=== PATIENT | male | born 1980 | race Caucasian/White ===

== ENCOUNTER 2017-05-14 16:34 | Emergency (ER) | payer BC ==
[2017-05-14] MEDS ORDERED: OXYCODONE-ACETAMINOPHEN 5-325 MG TABLET PO ONE (16:44)
[2017-05-14] MEDS ORDERED: OXYCODONE-ACETAMINOPHEN 5-325 MG TABLET ONE (16:48)
[2017-05-14] MEDS ORDERED: HYDROMORPHONE HCL INJ/PF 2 MG/ML AMPULE IV ONE (17:10)
[2017-05-14] MEDS ORDERED: ONDANSETRON HCL INJ/PF 4 MG/2 ML SDV IV ONE (17:10)
--- NOTE | 2017-05-14 17:24 | RADIOLOGY REPORT (SQ) ---
EXAM DESCRIPTION: ELBOW LEFT OVER 2 VIEWS COMPLETED DATE/TIME: 05/14/2017 5:10 pm REASON FOR STUDY: fall COMPARISON: None. NUMBER OF VIEWS: Four views. TECHNIQUE: AP, lateral, and both oblique radiographic images acquired of the left elbow. LIMITATIONS: None. FINDINGS: MINERALIZATION: Normal. BONES: There is anterior and distal dislocation of the distal humerus in relation to the olecranon. Multiple bony fragments are seen anterior likely representing fractures of the olecranon. No other f ractures are identified. JOINT: Moderate elbow joint effusion SOFT TISSUES: There is significant soft tissue swelling about the arm. No radiopaque foreign body. OTHER: No other significant finding. IMPRESSION: Anterior and distal dislocation of the distal humerus in relation to the olecranon not. There is a fracture of the anterior portion of the olecranon. No other fractures are identified. S ignificant soft tissue swelling about the left elbow. Effusion. TECHNICAL DOCUMENTATION: JOB ID: [id number] [employer]- All Rights Reserved
--- NOTE | 2017-05-14 17:25 | ER Document Report ---
ED Extremity Problem, Upper - General Mode of Arrival: Ambulatory Information source: Patient TRAVEL OUTSIDE OF THE [place] IN LAST 30 DAYS: No - HPI Patient complains to provider of: Injury, Pain, Left, Elbow, Shoulder Onset: Just prior to arrival - Refer to HPI note Similar symptoms previously: No Recently seen / treated by doctor: No <KARTHIK RAGLAND - Last Filed: 05/14/17 19:21> <IRVING MARTÍNEZ - Last Filed: 05/14/17 23:45> - General Chief Complaint: Elbow Injury Stated Complaint: ELBOW INJURY Time Seen by Provider: 05/14/17 16:49 Notes: Patient is a 36 year old male presenting to the emergency department for an injury to his left elbow. Patient state he was trying to get out of a pool that he was working on when he fell and injured his arm. Patient has a noticeable deformity. Patient also complains of some mild pain to his left shoulder. Patient last ate at 14:00. Patient denies any history of PTSD, anxiety, depression, or bipolar disorder. Patient has a history of a deviated septum in his right nare. Patient also currently has some sinus congestion. Patient has no known drug allergies. (KARTHIK RAGLAND) - Related Data Allergies/Adverse Reactions: No Known Allergies Allergy (Unverified 07/24/12 14:21) Past Medical History - General Information source: Patient - Social History Smoking Status: Current Every Day Smoker Chew tobacco use (# tins/day): No Frequency of alcohol use: Rare Drug Abuse: None Family History: None Patient has suicidal ideation: No Patient has homicidal ideation: No Renal/ Medical History: Denies: Hx Peritoneal Dialysis Surgical Hx: Negative - Immunizations Hx Diphtheria, Pertussis, Tetanus Vaccination: Yes <KARTHIK RAGLAND - Last Filed: 05/14/17 19:21> Review of Systems - Review of Systems Constitutional: No symptoms reported EENT: No symptoms reported Cardiovascular: No symptoms reported Respiratory: No symptoms reported Gastrointestinal: No symptoms reported Genitourinary: No symptoms reported Male Genitourinary: No symptoms reported Musculoskeletal: See HPI Skin: No symptoms reported Hematologic/Lymphatic: No symptoms reported Neurological/Psychological: No symptoms reported -: Yes All other systems reviewed and negative <KARTHIK RAGLAND - Last Filed: 05/14/17 19:21> Physical Exam <KARTHIK RAGLAND - Last Filed: 05/14/17 19:21> <IRVING MARTÍNEZ - Last Filed: 05/14/17 23:45> - Vital signs Vitals: Temp Pulse Resp BP Pulse Ox 98.3 F 70 20 144/84 H 100 05/14/17 16:37 05/14/17 16:37 05/14/17 16:37 05/14/17 16:37 05/14/17 16:37 - Notes Notes: GENERAL: Alert, interacts well. No acute distress. HEAD: Normocephalic, atraumatic. EYES: Pupils equal, round, and reactive to light. Extraocular movements intact. ENT: Oral mucosa moist, tongue midline. Slightly deviated septum to the left nare. Postnasal drip NECK: Full range of motion. Supple. Trachea midline. LUNGS: Clear to auscultation bilaterally, no wheezes, rales, or rhonchi. No respiratory distress. HEART: Regular rate and rhythm. No murmurs, gallops, or rubs. ABDOMEN: Soft, non-tender. Non-distended. Bowel sounds present in all 4 quadrants. EXTREMITIES: Posterior deformity to the left elbow consistent with posterior dislocation from x-ray reading. Tenderness to palpation at the proximal ulna, nontender at the proximal radius. Tender to palpation over the anterior glenohumeral joint. 5/5 muscular strength to the right hand. Patient cannot pronate or supinate with the left arm. No edema, radial and dorsalis pedis pulses 2/4 bilaterally. No cyanosis. NEUROLOGICAL: Alert and oriented x3. Normal speech. PSYCH: Normal affect, normal mood. SKIN: Warm, dry, normal turgor. No rashes or lesions noted. (KARTHIK RAGLAND) Course <KARTHIK RAGLAND - Last Filed: 05/14/17 19:21> <IRVING MARTÍNEZ - Last Filed: 05/14/17 23:45> - Re-evaluation Re-evalutation: 05/14/17 19:53 Initial x-ray shows a posterior elbow dislocation with fracture of the ulnar coronoid. After reduction with ketamine repeat x-ray shows good reduction with good alignment of the ulnar coronoid. Patient is placed in long-arm posterior splint and sling, discharged home asked to follow-up as an outpatient with Dr. Sainz. (IRVING MARTÍNEZ) - Vital Signs Vital signs: Temp Pulse Resp BP Pulse Ox 97.9 F 78 17 137/90 H 100 05/14/17 20:00 05/14/17 20:00 05/14/17 20:00 05/14/17 20:00 05/14/17 20:00 Procedures - Conscious Sedation Conscious sedation Time started: 18:21 Time completed: 19:00 Consent obtained: Yes Last meal: 14:00 Prior complications: Procedural sedation Normal healthy pt.: P1. - ASA Classification Airway Evaluation: Other - slight deviated septum on the left Mallampati Classification: Class 1 Used during procedure: Suction available, IV access obtained, Pulse ox on pt., block cableman on pt. Medications administered: Ketamine - 100mg Reversal agents: None I personally performed/intraservice time: Procedure, 31-45 min Complications: No - Immobilization Left Elbow Time completed: 18:29 Pre-Proc Neuro Vasc Exam: Normal Immobilizer type: Long arm posterior Performed by: Provider assisted, PCT Post-Proc Neuro Vasc Exam: Normal Alignment checked and good: Yes Left Arm Time completed: 18:33 Pre-Proc Neuro Vasc Exam: Normal Immobilizer type: Sling Performed by: PCT Post-Proc Neuro Vasc Exam: Normal Alignment checked and good: Yes - Joint Reduction/Fracture Care Left Elbow Time completed: 18:26 Consent obtained: Yes Conscious sedation: Yes Pre-procedure NV exam: Yes Post-procedure NV exam: Yes Post-reduction x-ray: Joint reduced Reduction attempts: 1 Complications: No <KARTHIK RAGLAND - Last Filed: 05/14/17 19:21> - Conscious Sedation Conscious sedation Indication: Fracture and posterior dislocation of the left elbow. Airway Evaluation: Other. No: Abnormal 3-3-2 rule, Copious secretions, Large tongue, Loose teeth I personally performed/intraservice time: Sedation - Immobilization Left Elbow Performed by: Provider Left Arm Performed by: Provider assisted - Joint Reduction/Fracture Care Left Elbow Fracture: Closed <IRVING MARTÍNEZ - Last Filed: 05/14/17 23:45> Discharge <KARTHIK RAGLAND - Last Filed: 05/14/17 19:21> <IRVING MARTÍNEZ - Last Filed: 05/14/17 23:45> - Discharge Clinical Impression: Dislocation of elbow, left, closed Qualifiers: Encounter type: initial encounter Qualified Code(s): S53.105A - Unspecified dislocation of left ulnohumeral joint, initial encounter Fracture of coronoid process of left ulna Qualifiers: Encounter type: initial encounter Fracture type: closed Fracture alignment: nondisplaced Qualified Code(s): S52.045A - Nondisplaced fracture of coronoid process of left ulna, initial encounter for closed fracture Condition: Stable Disposition: HOME, SELF-CARE Additional Instructions: You dislocated your left elbow and have a left ulnar coronoid fracture. We were able to reduce the elbow in the emergency department and the left ulna coronoid is well aligned. We have placed you in a long-arm posterior splint and a sling. It is important to call Dr. Sainz's office and follow-up with him. He is an orthopedic surgeon. Prescriptions: Hydrocodone/Acetaminophen [Racine 5-325 mg Tablet] 1 tab PO Q4HP PRN #10 tablet PRN Reason: Forms: Return to Work Referrals: JEANETH SAINZ MD [ACTIVE STAFF] - Follow up in 3-5 days (Call tomorrow to arrange a follow-up appointment.) Scribe Attestation: 05/14/17 23:45 I personally performed the services described in the documentation, reviewed and edited the documentation which was dictated to the scribe in my presence, and it accurately records my words and actions. (IRVING MARTÍNEZ) Scribe Documentation - Scribe Written by Darci:: Darci Montemayor, 05/14/17 18:40 acting as scribe for :: Marco A <KARTHIK RAGLAND - Last Filed: 05/14/17 19:21>
--- NOTE | 2017-05-14 17:26 | RADIOLOGY REPORT (SQ) ---
EXAM DESCRIPTION: SHOULDER LEFT 2 OR MORE VIEWS COMPLETED DATE/TIME: 05/14/2017 5:10 pm REASON FOR STUDY: INJURY; FALL COMPARISON: None. NUMBER OF VIEWS: Two views. TECHNIQUE: Frontal and Y-view images acquired of the left shoulder. LIMITATIONS: None. FINDINGS: MINERALIZATION: Normal. BONES: No acute fracture or dislocation. No worrisome bone lesions. JOINTS: No dislocation. VISUALIZED LUNGS AND RIBS: No pneumothorax. No rib fracture. SOFT TISSUES: No radiopaque foreign body. OTHER: No other significant finding. IMPRESSION: NEGATIVE STUDY OF THE LEFT SHOULDER. NO RADIOGRAPHIC EVIDENCE OF ACUTE INJURY. TECHNICAL DOCUMENTATION: JOB ID: [id number] [employer]- All Rights Reserved
[2017-05-14] MEDS ORDERED: KETAMINE HCL INJ 500 MG/10 ML VIAL IV ONE (17:39)
--- NOTE | 2017-05-14 19:41 | RADIOLOGY REPORT (SQ) ---
EXAM DESCRIPTION: ELBOW LEFT AP/LATERAL COMPLETED DATE/TIME: 05/14/2017 7:10 pm REASON FOR STUDY: L elbow post reduction COMPARISON: Left elbow two views 05/14/2017, 1702 hours NUMBER OF VIEWS: Two views. TECHNIQUE: AP and lateral radiographic images acquired of the left elbow. LIMITATIONS: Dorsal fiberglass splint FINDINGS: MINERALIZATION: Normal. BONES: There is a fracture along the coronoid process of ulna seen on lateral view. Proximal radius, distal humerus intact JOINT: Elbow joint effusion SOFT TISSUES: Soft tissue swelling. No radiopaque foreign body OTHER: No other significant finding. IMPRESSION: Normal alignment at the left elbow joint On the lateral view, a nondisplaced fracture of the coronoid process of the ulna is present. TECHNICAL DOCUMENTATION: JOB ID: [id number] [employer]- All Rights Reserved
[2017-05-14] MEDS ORDERED: HYDROCODONE/ACETAMINOPHEN 5-325 MG 6 TAB/DSPK PO PRN (19:57)
[2017-05-14 20:57] VITALS: BP 137/90
== END 2017-05-14 20:05 | disposition home or self-care (01) ==
LOC: ER 16:34
PROC: 0PSLXZZ Reposition Left Ulna, External Approach (ICD-10-PCS; principal; 2017-05-14)
DX: S52.045A Nondisplaced fracture of coronoid process of left ulna, initial encounter for closed fracture (principal); W19.XXXA Unspecified fall, initial encounter; Y93.89 Activity, other specified; M25.512 Pain in left shoulder; R09.81 Nasal congestion; F17.200 Nicotine dependence, unspecified, uncomplicated
CPT/HCPCS: 99283; 99152; 96374; 96375; 73070; 73080; 73030; 24675; J3490; J1170; J2405

== ENCOUNTER 2020-09-01 09:39 | Day surgery (SDC) | payer BC, OTHER ==
[~2020-09-01 09:39] MED LIST: DEXAMETHASONE SOD PHOS INJ 10 MG/1 ML VIAL ONE; FENTANYL CITRATE INJ/PF 100 MCG/2 ML AMPUL ONE; MIDAZOLAM 2 MG/2 ML INJ ONE; MORPHINE SULFATE 10 MG/ML INJ ONE; ONDANSETRON HCL INJ/PF 4 MG/2 ML SDV ONE; PROPOFOL INJ 200 MG/20 ML VIAL IV ONE
[2020-09-01] MEDS ORDERED: OXYMETAZOLINE HCL 0.05% NASAL SPRAY 15 ML BOTTLE ONE (09:53)
[2020-09-01] MEDS ORDERED: AMPICILLIN SODIUM 2 GM in NORMAL SALINE 100 ML IV PRN (10:05)
--- NOTE | 2020-09-01 11:08 | Operative Report ---
Operative Report-[facility] Operative Report: Date: 01 September 2020 History: 39-year-old male with a history of chronic tonsillitis and recurrent tonsillitis. Presents today for a tonsillectomy. Informed sent was obtained from the patient. Pre-operative diagnosis: 1. Chronic Tonsillitis Post operative diagnosis: Same as above Procedure: Tonsillectomy Surgeon: Ricky Smith MD, FACS, [facility] Anesthesia: General via Endotrachreal intubation Procedure: After receiving informed consent, the patient was brought to the operating room and placed supine on the operating table. After successful induction and intubation by anesthesia the patient was turned 90 degrees and placed in Trendelenburg. A shoulder roll was placed along with a head drape. A McIvor mouth gag was inserted atraumatically into the oral cavity and opened up. The soft palate was palpated and found to be normal. Red rubber catheters were inserted down each nasal cavity and brought out to elevate the soft palate. Attention was then directed to the tonsils. The right tonsil was grasped with tenaculum and retracted medially. Using Bovie electrocautery the right tonsil was dissected free from its tonsillar fossa . Hemostasis was obtained using suction Bovie electrocautery. A similar procedure was performed on the left side. Both tonsils were removed. The tonsils were 3+. The oral pharynx and the oral cavity were irrigated with copious amounts of normal saline, without evidence of bleeding. An orogastric tube was inserted into the stomach to aspirate gastric contents. The McIvor mouthgag was then released and reopened, the surgical bed was dry without evidence of bleeding. The McIvor mouth gag along with the red catheters were removed from the patient. The patient was then returned back to anesthesia who successfully extubated the patient. Estimated blood loss: 5 mL Fluids: 500 mL The patient was then transported to the Post Anesthesia Care Unit in stable condition with spontaneous respiration. No complication.
== END 2020-09-01 12:04 | disposition home or self-care (01) ==
LOC: SC 09:39
PROVIDERS: ATTEND Otolaryngology
DX: J35.1 Hypertrophy of tonsils (principal); Z03.818 Encounter for observation for suspected exposure to other biological agents ruled out; F17.210 Nicotine dependence, cigarettes, uncomplicated
CPT/HCPCS: 42826; 87635; 88304 ×2; J0290; J2250; J3010; J2270; J3490; J2405; J7050; J2704; J1100; C9803; 170